=== PATIENT | female | born 1975 | race Caucasian/White ===

== ENCOUNTER 2017-02-02 21:34 | Emergency (ER) | payer MEDICAID ==
[2017-02-02 21:40] VITALS: RESP 16
[2017-02-02] MEDS ORDERED: FLUORESCEIN SODIUM 1 MG STRIP OP ONE (21:56)
[2017-02-02] MEDS ORDERED: PROPARACAINE 0.5% 15 ML OPHT DROP ONE (21:57)
[2017-02-02] MEDS ORDERED: ERYTHROMYCIN 0.5% 1 GM OPHT.OINT EACHEYE ONE (22:11)
[2017-02-02] MEDS ORDERED: HYDROCOD/APAP 5/325 PREPACK#6 BTL TAKEHOME ONE (22:11)
--- NOTE | 2017-02-02 22:11 | EDPHY ---
General - History Smoking Status: Former smoker Narrative: CHIEF COMPLAINT: bilateral eye pain, sand exposure 3 days ago HISTORY OF PRESENT ILLNESS: patient was in [place] 3 days ago when she felt the same go into her eyes. She feels it was a very find grain same hand. She has had pain since that time. She copiously irrigated the eyes for several minutes that day and again later that evening. She still felt a sensation of irritation on both eyes and eyelids, right greater than left. No visual change. But her vision is painful to her. No headache. No surrounding erythema. No fever or chills. No other associated complaints or modifying factors. Tetanus was last updated in 2009. REVIEW OF SYSTEMS: Ten systems reviewed and are negative unless otherwise noted in the HPI PERTINENT MEDICAL HISTORY: EXAMINATION General Appearance: Alert, no distress Head: normocephalic, atraumatic Eyes: Pupils equal and round. Bilateral conjunctival injection. No hyphema. No obvious foreign body on gross examination. No nystagmus. EOMs intact. Wood's Lamp: There R 2 small areas of uptake on the left eye at the 3 4 o' clock position of the conjunctiva. Two small areas of uptake on the right eye, at the 6 and 9 o'clock positions of the conjunctiva. One small corneal abrasion at the 3 o'clock position on the right. One small corneal abrasion at 6 o'clock on the left. No floaters. Lids were everted and there is no foreign body noted. No rust rings. ENT, Mouth: Mucous membranes moist DIFFERENTIAL DIAGNOSES: Including but not limited to Corneal abrasion, conjunctival abrasion, foreign body, blepharitis MDM: 10:20 p.m. bilateral conjunctivitis with corneal conjunctival abrasions. There is no foreign body present. No purulence. Vision is intact. Her tetanus is up-to- date. She will be discharged home with erythromycin ointment three times daily. Instructions to follow up with Ophthalmology in the next 1-2 days for definitive care. Return to the ER for worsening pain, changes in vision, surrounding erythema. She is comfortable with this plan. I have answered all her questions. She is discharged home in stable condition. SUPERVISION: This patient was independently evaluated without the aide of supervising physician. (Mendez Davis) Medical Decision Making: I did not see this patient while she was in the emergency department. However her care was discussed with the PA while the patient was in the department. I agree with treatment plan and management (Srinivas Morris) - Objective Vital Signs: Initial Vital Signs Temperature (C) 36.4 C 02/02/17 21:37 Heart Rate 85 02/02/17 21:37 Respiratory Rate 16 02/02/17 21:37 Blood Pressure 139/84 H 02/02/17 21:37 O2 Sat (%) 98 02/02/17 21:37 O2 Delivery Mode Room Air Allergies/Adverse Reactions: No Known Allergies Allergy (Verified 08/27/13 18:46) Home Medications: Medication Instructions Recorded Cyclobenzaprine [Flexeril] 10 mg PO TIDPRN PRN #12 tab 08/23/13 Cyclobenzaprine [Flexeril] 10 mg PO TIDPRN PRN #12 tab 08/27/13 Erythromycin 0.5% 1 elisha OP TID #1 opht.oint 02/02/17 Hydrocodone/APAP 5/325 [[place] 1 - 2 tab PO Q4H PRN #10 tab 02/02/17 5/325 (*)] Medications Given: Discontinued Medications Hydrocodone Bitart/Acetaminophen ([place] 5/325mg Prepack#6) 1 btl TAKEHOME EDNOW ONE Stop: 02/02/17 22:12 Last Admin: 02/02/17 22:37 Dose: 1 btl Erythromycin (Erythromycin 0.5%) 1 elisha EACHEYE ONCE ONE Stop: 02/02/17 22:12 Last Admin: 02/02/17 22:36 Dose: 1 elisha Departure - Departure Disposition: Home, Routine, Self-Care Clinical Impression: Conjunctivitis, Conjunctival abrasion, Corneal abrasion Condition: Good Instructions: Hydrocodone/Acetaminophen (By mouth), Corneal Abrasion (ED), Eye Foreign Body (ED), Conjunctivitis (ED) Additional Instructions: Erythromycin as Rx. Follow up with OphthalmologistThe next 1-2 days. Return to ER for worsening symptoms, redness around the eye or changes in vision Referrals: Cheyenne Subramanian PA [Primary Care Provider] - As per Instructions Prescriptions: Erythromycin 0.5% 1 elisha OP TID #1 opht.oint Hydrocodone/APAP 5/325 [[place] 5/325 (*)] 1 - 2 tab PO Q4H PRN #10 tab PRN Reason: Pain, Moderate
[2017-02-02 23:02] VITALS: BP 129/69; PULSE 82; TEMP 98.2; O2SAT 93
== END 2017-02-02 23:02 | disposition home or self-care (01) ==
DX: S05.01XA Injury of conjunctiva and corneal abrasion without foreign body, right eye, initial encounter (principal); S05.02XA Injury of conjunctiva and corneal abrasion without foreign body, left eye, initial encounter; H10.9 Unspecified conjunctivitis; Z87.891 Personal history of nicotine dependence; X58.XXXA Exposure to other specified factors, initial encounter

== ENCOUNTER 2017-07-19 20:23 | Emergency (ER) | payer MEDICAID ==
[2017-07-19] MEDS ORDERED: PHENAZOPYRIDINE HCL 200 MG TAB ONE (20:58)
[2017-07-19] MEDS ORDERED: PHENAZOPYRIDINE HCL 200 MG TAB PO ONE (21:01)
[2017-07-19 21:08] LABS: COLOR AMBER; LEUKOCYTE ESTERASE,URINE 3+ (NEGATIVE); NITRITE,URINE NEGATIVE (NEGATIVE)
[2017-07-19] MEDS ORDERED: CEPHALEXIN 500 MG CAP PO ONE (21:17)
--- NOTE | 2017-07-19 21:18 | EDPHY ---
H & P Time Seen by Provider: 07/19/17 21:11 HPI/ROS: CHIEF COMPLAINT: Urinary complaints HISTORY OF PRESENT ILLNESS: The patient is a 41-year-old female presenting with urinary complaints. The patient reports dysuria and urinary frequency. She had a urinary tract infection 06/24/17 and was treated with a 7 day antibiotic. She states her symptoms improved for a few weeks, but returned over the past 4 days. She denies hematuria, abdominal pain, or fever. REVIEW OF SYSTEMS: A comprehensive 10 point review of systems is otherwise negative aside from elements mentioned in the history of present illness. Past Medical/Surgical History: Denies. Social History: Single. Lives in [place]. Smoking Status: Former smoker Physical Exam: General Appearance: Alert, pleasant Gastrointestinal: Abdomen is soft and non-tender Back: no CVAT Neurological: A&O, nonfocal, normal gait Skin: Warm and dry Psychiatric: Mood and affect normal Constitutional: Initial Vital Signs Temperature (C) 36.7 C 07/19/17 20:44 Heart Rate 96 07/19/17 20:44 Respiratory Rate 15 07/19/17 20:44 Blood Pressure 127/99 H 07/19/17 20:44 O2 Sat (%) 95 07/19/17 20:44 O2 Delivery Mode Room Air Allergies/Adverse Reactions: No Known Allergies Allergy (Verified 07/19/17 20:47) Home Medications: Medication Instructions Recorded Cyclobenzaprine [Flexeril] 10 mg PO TIDPRN PRN #12 tab 08/23/13 Acyclovir 07/19/17 Cephalexin [Keflex (*)] 500 mg PO QID #20 cap 07/19/17 Fluconazole [Diflucan] 200 mg PO ONCE #2 tablet 07/19/17 Phenazopyridine HCl [Pyridium] 200 mg PO TID #6 tab 07/19/17 Medical Decision Making ED Course/Re-evaluation: Patient with history of recurrent UTIs presents with urinary complaints. Plan for urinalysis. UA is positive for leukocyte esterase and bacteria. Urine cx sent. Patient was discharged home with Keflex. - Data Points Laboratory Results: 07/19/17 20:55 Urine Color KALEB Urine Appearance MODERATELY TURBID Urine pH 5.0 (5.0-7.5) Ur Specific [place] 1.016 (1.002-1.030) Urine Protein 1+ H (NEGATIVE) Urine Ketones 1+ H (NEGATIVE) Urine Blood 2+ H (NEGATIVE) Urine Nitrate NEGATIVE (NEGATIVE) Urine Bilirubin NEGATIVE (NEGATIVE) Urine Urobilinogen NEGATIVE EU EU (0.2-1.0) Ur Leukocyte Esterase 3+ H (NEGATIVE) Urine RBC 50-182 /hpf H /hpf (0-3) Urine WBC 50-182 /hpf H /hpf (0-3) Ur Epithelial Cells 2+ /lpf H /lpf (NONE-1+) Urine Bacteria 3+ /hpf H /hpf (NONE SEEN) Urine Mucus 4+ /lpf H /lpf (NONE-1+) Urine Glucose NEGATIVE (NEGATIVE) Medications Given: Discontinued Medications Cephalexin HCl (Keflex) 500 mg PO EDNOW ONE PRN Reason: Protocol Stop: 07/19/17 21:18 Last Admin: 07/19/17 21:48 Dose: 500 mg Phenazopyridine HCl (Pyridium) 200 mg PO EDNOW ONE Stop: 07/19/17 21:02 Last Admin: 07/19/17 21:02 Dose: 200 mg Departure - Departure Disposition: Home, Routine, Self-Care Clinical Impression: Urinary tract infection Qualifiers: Urinary tract infection type: site unspecified Hematuria presence: with hematuria Qualified Code(s): N39.0 - Urinary tract infection, site not specified Condition: Good Instructions: Urinary Tract Infection in Women (ED) Additional Instructions: Drink plenty of fluids. Take full course of antibiotics as prescribed. Take Diflucan and Pyridium as directed. Followup with your primary care physician if symptoms persist. Referrals: Cheyenne Subramanian PA [Primary Care Provider] - As per Instructions Prescriptions: Cephalexin [Keflex (*)] 500 mg PO QID #20 cap Fluconazole [Diflucan] 200 mg PO ONCE #2 tablet Phenazopyridine HCl [Pyridium] 200 mg PO TID #6 tab Report Scribed for: Sweetie Melendrez Report Scribed by: Delilah Sevilla Date of Report: 07/19/17 Time of Report: 21:16 Physician Review and Approval Statement: 07/19/17 21:19 Portions of this note were transcribed by a biomedical specialist. I personally performed the history, physical exam, and medical decision-making; and confirmed the accuracy of the information in the transcribed note.
[2017-07-19 21:26] LABS: BACTERIA 3+ /hpf (NONE SEEN); MUCUS 4+ /lpf (NONE-1+); RBC,URINE 50-182 /hpf (0-3); WBC,URINE 50-182 /hpf (0-3)
[2017-07-19 21:55] VITALS: BP 112/74; PULSE 74; RESP 16; TEMP 97.9; O2SAT 96
== END 2017-07-19 21:55 | disposition home or self-care (01) ==
DX: N39.0 Urinary tract infection, site not specified (principal); B96.20 Unspecified Escherichia coli [E. coli] as the cause of diseases classified elsewhere; Z87.891 Personal history of nicotine dependence